=== PATIENT | male | born 1960 | race Caucasian/White ===

== ENCOUNTER 2016-11-28 13:55 | Emergency (ER) | payer OTHER ==
[~2016-11-28] VITALS: Ht 177.8 cm; Wt 115.0 kg
[2016-11-28 13:56] VITALS: BP 131/75; PULSE 77; RESP 20; TEMP 97.4; O2SAT 95
[2016-11-28] MEDS ORDERED: ATOR20TA15 PO (14:19)
[2016-11-28] MEDS ORDERED: METO50TA PO (14:19)
[2016-11-28] MEDS ORDERED: TAMS0.4C4 PO (14:19)
[2016-11-28] MEDS ORDERED: FLEC100T PO (14:19)
[2016-11-28] MEDS ORDERED: LISI-515 PO (14:19)
[2016-11-28] MEDS ORDERED: WARF-22 PO (14:19)
[2016-11-28] MEDS ORDERED: METF500T PO (14:19)
[2016-11-28 14:20] VITALS: O2SAT 98
[2016-11-28] MEDS ORDERED: ASPIRIN 325 MG TAB PO ONE (14:30)
[2016-11-28 14:52] LABS: AUTOMATED NEUTROPHIL # 5.3 TH/MM3 (1.8-7.7); BASOPHIL # 0.1 TH/MM3 (0-0.2); BASOPHIL % 0.9 % (0.0-2.0); EOSINOPHIL # 0.4 TH/MM3 (0-0.4); HEMATOCRIT 43.4 % (39.0-51.0); HEMO FLAGS DIFF FINAL; LYMPH % 27.9 % (9.0-44.0); LYMPHOCYTE # 2.5 TH/MM3 (1.0-4.8); MEAN CELL VOLUME 80.5 FL (80.0-100.0); MEAN CORPUSCULAR HEMOGLOBIN 27.7 PG (27.0-34.0); MEAN CORPUSCULAR HGB CONC 34.5 % (32.0-36.0); MONO % 7.7 % (0.0-8.0); NEUT % 59.5 % (16.0-70.0); PLATELET COUNT 148 TH/MM3 (150-450); RED BLOOD COUNT 5.39 MIL/MM3 (4.50-5.90); RED CELL DISTRIBUTION WIDTH 14.8 % (11.6-17.2); WHITE BLOOD COUNT 8.9 TH/MM3 (4.0-11.0)
--- NOTE | 2016-11-28 14:57 | PD ---
HPI Chief Complaint: Chest Pain Time Seen by Provider: 14:52 Travel History International Travel<30 days: No Contact w/Intl Traveler<30days: No Traveled to known affect area: No History of Present Illness HPI 56-year-old male that presents to the ED for evaluation of chest pain. Patient states that he developed this chest pain and trouble hours ago. Per patient [place] and he developed the chest discomfort. Per patient feels like a pressure. 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 Per patient he also has cardiomegaly. Patient follows with maintenance person here Dr. Romero and actually does have a stress test this week. Per patient he does not know the results of this. Patient only had this testing done [place] and is essentially getting a baseline for the maintenance person. He had no symptoms at the time. Per patient last night he had difficulty sleeping saying that he woke up multiple times for no reason. Per patient he woke up with a headache on his mid head that was more significant than his previous headaches but he came down with Tylenol. Per patient he still has a headache. Per patient he still has the discomfort in his chest. Per patient and doesn't go away. Doesn't get worse with anything. Denies any numbness, tilling, weakness. No radiation. No abdominal pain. Pain per patient is not severe and is 5 out of 10. Per patient he went to an urgent care and wanted to see if he could get a troponin but they will not do it at the urgent care so he came here. PFSH Past Medical History Hx Anticoagulant Therapy: Yes (warfarin) Cardiovascular Problems: Yes (heart valve replacement) Diabetes: Yes (metformin) Diminished Hearing: No Tetanus Vaccination: Unknown Influenza Vaccination: Yes Social History Alcohol Use: No Tobacco Use: No Substance Use: No Allergies-Medications (Allergen,Severity, Reaction): Coded Allergies: No Known Allergies (Unverified , 11/28/16) Reported Meds & Prescriptions Reported Meds & Active Scripts Active Reported Warfarin 10 Mg Tab 10 Mg PO HS Lisinopril 20 Mg Tab 20 Mg PO DAILY Flecainide (Flecainide Acetate) 100 Mg Tab 100 Mg PO BID Metoprolol Tartrate 50 Mg Tab 50 Mg PO DAILY Metformin (Metformin HCl) 500 Mg Tab 500 Mg PO BIDPC With meals Atorvastatin (Atorvastatin Calcium) 20 Mg Tab 20 Mg PO HS Tamsulosin (Tamsulosin HCl) 0.4 Mg Cap 0.4 Mg PO HS Review of Systems Except as stated in HPI: all other systems reviewed are Neg Physical Exam Narrative GENERAL: SKIN: Warm and dry. HEAD: Atraumatic. Normocephalic. EYES: Pupils equal and round. No scleral icterus. No injection or drainage. ENT: No nasal bleeding or discharge. Mucous membranes pink and moist. Tongue is midline. No uvula deviation. NECK: Trachea midline. No JVD. CARDIOVASCULAR: Regular rate and rhythm. No murmurs, S3, S4. Chest pain is not reproducible with touch. Patient does have multiple scars to the chest. RESPIRATORY: No accessory muscle use. Clear to auscultation. Breath sounds equal bilaterally. GASTROINTESTINAL: Abdomen soft, non-tender, nondistended. Hepatic and splenic margins not palpable. MUSCULOSKELETAL: Extremities without clubbing, cyanosis, or edema. No obvious deformities. Full range of motion of the upper and lower extremities bilaterally. 2+ pulses bilaterally. NEUROLOGICAL: Awake and alert. No obvious cranial nerve deficits. Motor grossly within normal limits. Five out of 5 muscle strength in the arms and legs. Normal speech. PSYCHIATRIC: Appropriate mood and affect; insight and judgment normal. Data Data Last Documented VS Vital Signs Date Time Temp Pulse Resp B/P Pulse Ox O2 Delivery O2 Flow Rate FiO2 11/28/16 15:58 78 18 138/75 99 Room Air 11/28/16 13:56 97.4 Orders Electrocardiogram (11/28/16 14:18) Basic Metabolic Panel (Bmp) (11/28/16 14:18) B-Type Natriuretic Peptide (11/28/16 14:18) Ckmb (Isoenzyme) Profile (11/28/16 14:18) Complete Blood Count With Diff (11/28/16 14:18) Magnesium (Mg) (11/28/16 14:18) Prothrombin Time / Inr (Pt) (11/28/16 14:18) Act Partial Throm Time (Ptt) (11/28/16 14:18) Troponin I (11/28/16 14:18) Chest, Single Ap (11/28/16 14:18) Ecg Monitoring (11/28/16 14:18) Bilateral Bp Monitoring (11/28/16 14:18) Iv Access Insert/Monitor (11/28/16 14:18) Oximetry (11/28/16 14:18) Oxygen Administration (11/28/16 14:18) Aspirin (Aspirin) (11/28/16 14:30) Troponin I (11/28/16 17:24) Labs Laboratory Tests Test 11/28/16 11/28/16 14:24 16:20 White Blood Count 8.9 TH/MM3 Red Blood Count 5.39 MIL/MM3 Hemoglobin 14.9 GM/DL Hematocrit 43.4 % Mean Corpuscular Volume 80.5 FL Mean Corpuscular Hemoglobin 27.7 PG Mean Corpuscular Hemoglobin 34.5 % Concent Red Cell Distribution Width 14.8 % Platelet Count 148 TH/MM3 Mean Platelet Volume 10.3 FL Neutrophils (%) (Auto) 59.5 % Lymphocytes (%) (Auto) 27.9 % Monocytes (%) (Auto) 7.7 % Eosinophils (%) (Auto) 4.0 % Basophils (%) (Auto) 0.9 % Neutrophils # (Auto) 5.3 TH/MM3 Lymphocytes # (Auto) 2.5 TH/MM3 Monocytes # (Auto) 0.7 TH/MM3 Eosinophils # (Auto) 0.4 TH/MM3 Basophils # (Auto) 0.1 TH/MM3 CBC Comment DIFF FINAL Differential Comment Prothrombin Time 11.5 SEC Prothromb Time International 1.0 RATIO Ratio Activated Partial 27.5 SEC Thromboplast Time Sodium Level 142 MEQ/L Potassium Level 4.1 MEQ/L Chloride Level 108 MEQ/L Carbon Dioxide Level 30.9 MEQ/L Anion Gap 3 MEQ/L Blood Urea Nitrogen 14 MG/DL Creatinine 0.84 MG/DL Estimat Glomerular Filtration 95 ML/MIN Rate Random Glucose 102 MG/DL Calcium Level 8.7 MG/DL Magnesium Level 1.8 MG/DL Total Creatine Kinase 92 U/L Troponin I 0.02 NG/ML LESS THAN 0.02 NG/ML MDM Medical Decision Making Medical Screen Exam Complete: Yes Emergency Medical Condition: Yes Medical Record Reviewed: Yes Interpretation(s) CBC & BMP Diagram 11/28/16 14:24 troponin negative x 2 CK MB negative Last Impressions Chest X-Ray 11/28/16 1258 Signed Impressions: Service Date/Time: Monday, November 28, 2016 14:32 - CONCLUSION: 1. Cardiomegaly. Postop changes as above. No consolidation or effusion. Gurpreet Sanches MD EKG shows atrial and ventricular pacing with no sign of acute ischemia or arrhythmia. Read by me and attending Differential Diagnosis ACS versus CHF versus chest pain versus atypical chest pain versus pneumonia versus mass Narrative Course 56-year-old male that presents to the ED for evaluation of chest discomfort. Patient was properly examined and was found to have signs and symptoms consistent appears to be chest discomfort. Unclear etiology. Concern for ACS. Labs and imaging ordered. Patient was given aspirin. Labs and imaging showed no sign of acute disease. Case was discussed in my attending who recommends I speak with Dr Romero due to recent stress test. I spoke with Dr Ballesteros on the phone who was able to review his medical records and stated that the stress test did not show any sign of ischemia and he personally spoke with Dr. Romero who recommended second troponin a negative patient can go home. This was told to the patient who is in agreement with plan. Second troponin was done and was actually less than 0.02. Patient was reassured. At this time recommend close follow with his maintenance person on Wednesday. Patient agrees with this plan. Close follow with PCP. See ED worsening symptoms. Diagnosis Primary Impression: Atypical chest pain Patient Instructions: General Instructions Additional Instructions: Follow-up with your maintenance person this week. See ED for any worsening symptoms. Continue taking her medications as prescribed by her doctor. Med/Other Pt SpecificInfo: No Change to Meds Disposition: 01 DISCHARGE HOME Condition: Stable Franky Montanez Nov 28, 2016 14:57
[2016-11-28 15:08] LABS: BICARBONATE 30.9 MEQ/L (21.0-32.0); MAGNESIUM 1.8 MG/DL (1.5-2.5); POTASSIUM 4.1 MEQ/L (3.5-5.1)
--- NOTE | 2016-11-28 15:11 | RADRPT ---
EXAM DATE/TIME: 11/28/2016 14:32 [facility] COMPARISON: No previous studies available for comparison. INDICATIONS : Chest pain. MEDICAL HISTORY : A-fib. SURGICAL HISTORY : CABG. Pacemaker. Coronary artery stent. ENCOUNTER: Initial ACUITY: 1 day PAIN SCORE: 2/10 LOCATION: Bilateral chest FINDINGS: A single view of the chest demonstrates cardiomegaly. Pacer leads overlie right atrium and right vent ricle. Previous median sternotomy and aortic valve replacement. No lung consolidation or effusion. CONCLUSION: 1. Cardiomegaly. Postop changes as above. No consolidation or effusion. Gurpreet Sanches MD on November 28, 2016 at 15:07 Board Certified Radiologist. This report was verified electronically.
[2016-11-28 15:28] LABS: APTT (PATIENT) 27.5 SEC (24.3-30.1); PROTHROMBIN TIME - PATIENT 11.5 SEC (9.8-11.6)
[2016-11-28 15:58] VITALS: BP 138/75; PULSE 78; RESP 18; O2SAT 99
--- NOTE | 2016-11-29 13:20 | EKG ---
Date Performed: 11/28/2016 Time Performed: 14:19:45 PTAGE: 56 years EKG: ELECTRONIC ATRIAL PACEMAKER ELECTRONIC VENTRICULAR PACEMAKER ABNORMAL RHYTHM ECG NO PREVIOUS TRACING No significant change. DOCTOR: Ana Vargas Interpretating Date/Time 11/29/2016 13:18:15
--- NOTE | 2016-11-29 13:21 | EKG ---
Date Performed: 11/28/2016 Time Performed: 16:21:00 PTAGE: 56 years EKG: ELECTRONIC ATRIAL PACEMAKER ELECTRONIC VENTRICULAR PACEMAKER ABNORMAL RHYTHM ECG PREVIOUS TRACING : 11/28/2016 14.19 Compared to prior tracing no significant change DOCTOR: Ana Vargas Interpretating Date/Time 11/29/2016 13:18:31
== END 2016-11-28 17:21 | disposition home or self-care (01) ==
LOC: NEPE 13:55
DX: R07.89 Other chest pain (principal); R51 Headache; R94.31 Abnormal electrocardiogram [ECG] [EKG]; E11.9 Type 2 diabetes mellitus without complications; Z95.2 Presence of prosthetic heart valve; Z79.01 Long term (current) use of anticoagulants; Z79.84 Long term (current) use of oral hypoglycemic drugs; Z79.899 Other long term (current) drug therapy; Z86.79 Personal history of other diseases of the circulatory system
CPT/HCPCS: 71010; 80048; 82550; 83735; 83880; 84484; 85025; 85610; 85730; 93005